=== PATIENT | female | born 1940 | race Caucasian/White ===

== ENCOUNTER 2017-05-22 16:25 | Emergency (ER) | payer OTHER ==
[~2017-05-22] VITALS: Ht 157.5 cm; Wt 81.7 kg
--- NOTE | ~2017-05-22 | EKG ---
[place] [address] [facility] [employer] [place] [address] ELECTROCARDIOGRAM REPORT Name: MIRIAN COCHRAN ELVIN Room #: [facility]P [id number] Admission: 05/22/17 Attend Phys: Discharge: 05/22/17 Date of : 38 Report #: [id number] THIS REPORT FOR: //name// [facility] ED Test Date: 2017-05-22 Test Time: 18:03:46 Pat Name: MIRIAN COCHRAN Department: Room: Gender: F Engine Hostler: RHIANNA : 1940 Requested By: Kip Roy Order Number: [id number] MD: Kimani Silverman Measurements Intervals [place] Rate: 76 P: -35 KS: 174 QRS: -17 QRSD: 83 T: 25 QT: 363 QTc: 409 Interpretive Statements Sinus rhythm Inferior infarct, old Compared to ECG 01/24/2010 11:16:06 Ventricular premature complex(es) no longer present Electronically Signed On 05-23-2017 7:19:06 CDT by Kimani Silverman [email or web address] <ELECTRONICALLY SIGNED> By: Kimani Silverman MD, [facility] 05/23/17 0719 02 02 Kimani Silverman MD, [facility] /EPI
[~2017-05-22 16:25] MED LIST: ADULT LOW DOSE81 MG PO; BISACODYL SUPP10 MG RE; BYSTOLIC 5 MG5 M1 PO; CIPRO500 MG/5 M PO; COUMADIN 4 MG TA4 M1 PO; FIBERCON625 MG PO; FLAGYL 250 MG250 MG PO; LIVALO2 MG PO; MICARDIS HCT 81 EACH PO; MICARDIS40 MG PO; PREVACID 24HR15 MG PO; PRILOSEC40 MG PO; TOPROL XL25 MG PO; TUMS DUAL ACTI1 EACH PO
[2017-05-22 17:09] LABS: ABSOLUTE NEUTROPHILS 3.9 thou/uL (1.4-8.2); BASOPHILS 1.2 % (0.0-2.0); EOSINOPHILS 2.6 % (0.0-3.0); HEMATOCRIT 32.9 % (37.0-47.0); HEMOGLOBIN 10.9 gm/dL (12.0-15.0); LYMPHOCYTES 37.3 % (24.0-44.0); MCH 28.2 pg (26.0-34.0); MCV 85.5 fL (80.0-100.0); MONOCYTES 9.2 % (1.0-8.0); PLATELET COUNT 386 thou/uL (150-400); POLYS 49.7 % (36.0-66.0); RBC 3.85 mil/uL (4.20-5.00); RDW 14.2 % (10.5-14.5); WBC 7.8 thou/uL (4.0-11.0)
[2017-05-22 17:17] LABS: CREATININE 1.7 mg/dL (0.6-1.0); POTASSIUM 5.1 mmol/L (3.5-5.1)
[2017-05-22 17:23] LABS: ALBUMIN 3.6 g/dL (3.4-5.0); TOTAL BILIRUBIN 0.5 mg/dL (<0.1-1.0); TOTAL PROTEIN 7.3 g/dL (6.4-8.2)
[2017-05-22 19:01] LABS: URINE BILIRUBIN NEGATIVE (Negative); URINE BLOOD TRACE (Negative); URINE CLARITY CLEAR; URINE COLOR YELLOW; URINE GLUCOSE-RANDOM* NEGATIVE (Negative); URINE KETONES NEGATIVE (Negative); URINE LEUKOCYTES-REFLEX NEGATIVE (Negative); URINE NITRITE-REFLEX NEGATIVE (Negative); URINE PROTEIN (DIPSTICK) NEGATIVE (Negative); URINE UROBILINOGEN 0.2 E.U./dl (0.2-1.0)
[2017-05-22] MEDS ORDERED: OSELB75 PO (19:43)
[2017-05-22] MEDS ORDERED: ZOFRAN4 MG PO (19:43)
== END 2017-05-22 20:06 | disposition home or self-care (01) ==
LOC: ER 16:25
PROVIDERS: Emergency Medicine
DX: R11.2 Nausea with vomiting, unspecified (principal); I10 Essential (primary) hypertension; E78.00 Pure hypercholesterolemia, unspecified; Z90.49 Acquired absence of other specified parts of digestive tract; Z98.890 Other specified postprocedural states

== ENCOUNTER 2019-03-24 16:33 | Inpatient (IN) | payer OTHER ==
[~2019-03-24] VITALS: Ht 157.5 cm; Wt 85.3 kg
[~2019-03-24 16:33] MED LIST changes: +OSELB75 PO; +ZOFRAN4 MG PO
[2019-03-24] MEDS ORDERED: ROSUVASTATIN CA10 MG PO (17:25)
[2019-03-24] MEDS ORDERED: FLECAINIDE ACET50 M2 PO (17:26)
[2019-03-24 17:30] VITALS: BP 113/58
[2019-03-24 18:49] LABS: HEMATOCRIT 31.9 % (37.0-47.0); HEMOGLOBIN 10.2 gm/dL (12.0-15.0); MCH 28.4 pg (26.0-34.0); MCHC 31.9 g/dL (28.0-37.0); PLATELET COUNT 284 thou/uL (150-400); RBC 3.58 mil/uL (4.20-5.00); RDW 13.4 % (10.5-14.5); WBC 6.3 thou/uL (4.0-11.0)
[2019-03-24 18:58] LABS: % SATURATION 9 % (20-39); IRON 24 ug/dL (50-170); TIBC 274 ug/dL (250-450)
[2019-03-24 18:59] LABS: ALBUMIN 3.5 g/dL (3.4-5.0); CALCIUM 9.6 mg/dL (8.5-10.1); CREATININE 1.9 mg/dL (0.6-1.0); POTASSIUM 4.5 mmol/L (3.5-5.1); TOTAL BILIRUBIN 0.3 mg/dL (<0.1-1.0); TOTAL PROTEIN 7.5 g/dL (6.4-8.2)
--- NOTE | 2019-03-24 19:24 | NUR ---
Pt was direct admission from Dr Walsh office. notified when pt arrived at hospital. Alert and oriented x4. Admission completed. IVF and IV antibiotics infusing. Home meds restarted. Pt states she feels weak. Lung sounds clear but diminished in the bases. Family at bedside. Call light within reach. Fall precautions in place.
[2019-03-24 20:17] LABS: ANISOCYTOSIS 1+
[2019-03-24 21:32] VITALS: BP 96/44
[2019-03-25 00:28] VITALS: BP 109/51
[2019-03-25 03:40] VITALS: BP 157/100
[2019-03-25 05:02] VITALS: BP 124/61
--- NOTE | 2019-03-25 05:37 | NUR ---
ASSUMED CARE AROUND 1914. AXOX3. DTR AT BEDSIDE AT ALL TIME. PT C/O NAUSEA/ACID REFLUX IN THE BEGINNING OF THE SHIFT. ALSO NOTED LOW BP. CALLED AND OBTAINED ORDERS FOR ZOFRAN/TUMS/INC IVF. MN VSS. AROUND 339, PT'S DTR CALLED AND SAID PT WAS NOT FEELING GOOD. THAT PT WAS CRYING ON BED SHE FEELS LIKE SHE'LL PASS OUT AND . ELEVATED BP,PULSE,RESPIRATION NOTED WITH O SAT AND TEMP NORMAL. CALLED IMMEDIATELY AND OBTAINED ORDER FOR ONETIME ATIVAN AND MD TAKE CARE OF THE REST OF IT. AFTER ATIVAN, PT'S BP AND PULSE NORMALIZED AND PT VERBALIZES EASE OF SYMPTOMS. NO S/S ACUTE DISTRESS NOTED OR REPORTED AT THIS TIME. WILL CONT TO MONITOR CLOSELY FOR ANY CHANGES IN CONDITION.
[2019-03-25 08:04] VITALS: BP 142/65
--- NOTE | 2019-03-25 14:30 | NUR ---
PT ASSESSED AT START OF SHIFT. FEELING BETTER AFTER SLEEPING SOME. ATIVAN WORKED WELL. AEROSOL TREATMENT CHANGED TO XOEPENEX AND DID NOT CAUSE ANY TACHYCARDIA OR ANXIETY. IV STEROID ALSO WEANED DOWN. PT COUGH A LITTLE BETTER. EATING SOME. ENC FLUIDS. TRANSFERRED TO [facility] AT THIS TIME.
[2019-03-25 14:37] VITALS: BP 120/62
--- NOTE | 2019-03-25 16:04 | NUR ---
PATIENT TRANSFERRED FROM [address] [place] [address], REPORT FROM VEE/RN. PATIENT ALERT AND ORIENTED X 4. PATIENT UP WITH SBA, BUT STEADY ON HER FEET. PATIENT C/O HEADACHE/DR PIERSON HERE ON THE UNIT, RECEIVED NEW ORDERS FOR TYLENOL AND IBUPROFEN, SHE PREFERRED IBUPROFEN 2 TABLETS GIVEN. PATIENT HAS LEFT UPPER ARM IV WITH D51/2 NS WITH 20 OF KCL AT 125CC/HR. DR PIERSON STATES PATIENT MAY DISCHARGE ON SATURDAY. DAUGHTER AT BEDSIDE, WILL BE SPENDING THE NIGHT. WILL CONTINUE TO MONITOR.
--- NOTE | 2019-03-25 16:18 | NUR ---
Chart reviewed and case discussed with the care team. Global Technical Writer visited with the pt and her dtr at bedside. She is a&ox4 and indicates that she lives independently at home with her spouse. Her pcp is Dr. Walsh. She normally drives and is active in the community. No dme or hh history. She reports feeling weaker than normally but able to walk in the hallway with supervision. She denies any dc needs or concerns at this time. Cm role introduced. Likely home in 1-2 days with outpt f/u. She is being treated for pneumonia. Will remain available should dc needs arise.
[2019-03-25 19:45] VITALS: BP 106/54
--- NOTE | 2019-03-26 05:05 | NUR ---
Assumed pt care at 1900. Pt is A/OX4, pleasant. VSS.Up with SBA. Denied pain on assessment. Continent of B&B. Flu swab obtained and results negative;pt and dtr updated. Pt does have a congested cough,denies producing any sputum. IVF infusing via LAC w/o problems. Resting quietly at this time,dtr at the bedside for the night. Fall precautions in place,will continue to monitor pt.
[2019-03-26 06:06] LABS: ABSOLUTE NEUTROPHILS 8.1 thou/uL (1.4-8.2); HEMATOCRIT 26.3 % (37.0-47.0); HEMOGLOBIN 8.5 gm/dL (12.0-15.0); LYMPHOCYTES 7.2 % (24.0-44.0); MCH 28.6 pg (26.0-34.0); MCHC 32.2 g/dL (28.0-37.0); MCV 88.9 fL (80.0-100.0); MONOCYTES 5.5 % (1.0-8.0); PLATELET COUNT 239 thou/uL (150-400); POLYS 87.3 % (36.0-66.0); RBC 2.96 mil/uL (4.20-5.00); RDW 13.6 % (10.5-14.5); WBC 9.3 thou/uL (4.0-11.0)
[2019-03-26 06:36] LABS: CALCIUM 8.8 mg/dL (8.5-10.1)
[2019-03-26 06:38] LABS: POTASSIUM 6.2 mmol/L (3.5-5.1)
[2019-03-26 08:01] VITALS: BP 128/58
--- NOTE | 2019-03-26 10:38 | NUR ---
ANIBAL reviewed chart and spoke with nursing. Pt is not medically stable for discharge today. ANIBAL spoke with pt's dtr-in-law, Allison, via phone to provide update. urban and regional planner to update [facility] admissions dept. ANIBAL is following to assist as needed with discharge planning.
--- NOTE | 2019-03-26 10:40 | NUR ---
SW reviewed chart and spoke with nursing. Pt was [facility] to [facility] from and is progressing towards goals for discharge. Discharge home is anticipated for tomorrow. ANIBAL is following to assist as needed with discharge planning.
[2019-03-26 18:13] VITALS: BP 124/60
--- NOTE | 2019-03-26 18:14 | NUR ---
PT IS AOX4, VSS, PAIN CONTROLLED WITH ORAL PAIN ANALGESIC. PT HAD A SMALL PANIC ATTACK TODAY AFTER RECEIVING BREATHING TXMT BY RT. NURSE CALLED DR. LOVELL RECEIVED ORDER FOR ATIVAN 0.5 Q 3HR PRN. PT RECEIVED ATIVAN AND CALMED DOWN. PT UP WITH SB ASSIST, TOLERATING DIET WELL. POTASSIUM MEDICATION STOPPED BY DOCTOR THIS MORNING D/T ELEVATED POTASSIUM. FALL PRECAUTION IN PLACE, CALL LIGHT/PERSONAL ITEMS IN REACH. WILL CONTINUE TO MONITOR.
[2019-03-26 19:40] VITALS: BP 115/51
--- NOTE | 2019-03-27 00:50 | NUR ---
PT WAS OBSERVED SITTING UP IN THE CHAIR IN HER ROOM WATCHING TV IN THE COMPANY OF HER FAMILY AT START OF SHIFT.PT DENIED PAIN SO FAR.PER REPORT PT HAD A PANIC ATTACK DURING THE DAY SHIFT,NONE NOTED SO FAR THIS SHIFT.PT HAS BEEN CALM AND COOPERATIVE.PT LOOKING FORWARD TO BE DC LATER IN THE DAY.FALL PRECAUTIONS IN PLACE,CALL LIGHT WITHIN REACH.
[2019-03-27 05:10] LABS: ABSOLUTE NEUTROPHILS 7.9 thou/uL (1.4-8.2); HEMATOCRIT 26.9 % (37.0-47.0); HEMOGLOBIN 8.5 gm/dL (12.0-15.0); LYMPHOCYTES 9.9 % (24.0-44.0); MCH 28.2 pg (26.0-34.0); MCHC 31.7 g/dL (28.0-37.0); MONOCYTES 7.9 % (1.0-8.0); PLATELET COUNT 248 thou/uL (150-400); POLYS 82.2 % (36.0-66.0); RBC 3.02 mil/uL (4.20-5.00); RDW 13.6 % (10.5-14.5); WBC 9.6 thou/uL (4.0-11.0)
[2019-03-27 05:33] LABS: POTASSIUM 5.4 mmol/L (3.5-5.1)
[2019-03-27 06:00] VITALS: BP 123/55
[2019-03-27 07:34] VITALS: BP 122/62
[2019-03-27 17:31] VITALS: BP 117/60
--- NOTE | 2019-03-27 18:46 | H ---
[facility] [place] [address] HISTORY AND PHYSICAL Name: DIMASMAHAMED ELVIN Room #: 406-P ADM IN M.R.#: [id number] Admission: 03/24/19 Attend Phys: Dutch Walsh MD, FAAF Discharge: Date of : 39 Report #: [id number] THIS REPORT FOR: //name// CC: Dutch Walsh DATE OF SERVICE: 03/24/2019 CHIEF COMPLAINT: Pneumonia/pneumonitis; hypoxia. HISTORY OF PRESENT ILLNESS: The patient is a 78-year-old white female well known to me who I evaluated initially in my office on the day of this admission. She had a 1-week evolution of rhonchus cough, congestion, and fatigue. She was noted to be dyspneic in the office and pulse ox on room air, there was 93%. Auscultation revealed evidence of consolidation in both lung bases. She was admitted to the hospital with a presumptive diagnosis of pneumonia and pneumonitis with hypoxia. PAST MEDICAL HISTORY: Hypertension, dyslipidemia, premature ventricular contractions, obesity, diverticulosis, diverticulitis, esophagitis, and iron deficiency anemia. PAST SURGICAL HISTORY: Cholecystectomy, appendectomy, hernia repair with hiatal hernia, polypectomies in 2013, left knee arthroscopy, bilateral cataract surgeries, IVC filter removal 03/02/2015. MEDICATIONS: Telmisartan/hydrochlorothiazide Micardis 80/12.5 one p.o. daily; that is all one medicine, omeprazole 40 mg 1 p.o. daily, and Livalo 2 mg 2 p.o. at bedtime. ALLERGIES: No known drug allergies. SOCIAL HISTORY: Recently , nonsmoker, nondrinker. Lives in [place], [place], and has family in the area. FAMILY HISTORY: Brother had a coronary artery bypass graft surgery in his 60s. Father at age 59 of unknown causes. REVIEW OF SYSTEMS: GENERAL: She has had a fever and shaking chills. No nausea, vomiting or abdominal pain. EYES: No visual changes. ENT: No problems with hearing, swallow, taste, or smell. CARDIOVASCULAR: She has had chest congestion, but no precordial pain, no palpitations. RESPIRATORY: She has had a rhonchus cough and dyspnea. GASTROINTESTINAL: No abdominal pain. [address] [address] HISTORY AND PHYSICAL Name: MAHAMED COCHRAN [facility] Room #: [facility] IN ..#: [id number] Admission: 03/24/19 Attend Phys: Dutch Walsh MD, FAAF Discharge: Date of : 39 Report #: [id number] GENITOURINARY: No problems urinating. MUSCULOSKELETAL: No muscle or joint pain. NEUROLOGIC: No paresis, paralysis, or paresthesias. PSYCHIATRIC: No feelings of depression. DERMATOLOGIC: No disturbing lesions or rash. Remainder of systems review is negative. OBJECTIVE: VITAL SIGNS: Temperature is 98.6, pulse 98, respirations 20, blood pressure 148/88, and pulse ox on room air in hospital is 98%. In office was 93%. She is a pleasant white female, appears fatigued, and has rhonchus cough. HEENT: Pupils equal, round, reactive to light and accommodation. Extraocular muscles intact. Pharynx unremarkable. NECK: Supple. COR: S1, S2. CHEST: Rhonchi bilateral bases with some wheezing. ABDOMEN: Soft, nontender. EXTREMITIES: Nonedematous. NEUROLOGIC: Intact without focal deficits. IMAGING: Chest x-ray showed a scant bibasilar atelectasis versus infiltrate and chronic fibrotic changes. LABORATORY DATA: White count is 10.8, hemoglobin 10.2, iron 26, BUN 28, and creatinine 1.9. ASSESSMENT: 1. Pneumonia/pneumonitis. 2. Hypoxia. 3. Hypertension. 4. Iron deficiency anemia. 5. Volume depletion. PLAN: Admit to hospital, Rocephin IV. Blood and sputum cultures obtained, IV fluid, rehydration. ____. Follow labs longitudinally and then also pulmonary toilet with albuterol aerosol treatments and then another one is put please, IV steroids. <ELECTRONICALLY SIGNED> By: Dutch Walsh MD, FAAFP, FACEP 03/27/19 1846 0942 1001 Dutch Walsh MD, FAAFP, FACEP /nt
--- NOTE | 2019-03-27 20:25 | NUR ---
ASSUMED CARE OF PATIENT AT 0715, PATIENT ALERT AND ORIENTED X 4. PATIENT DENIES PAIN THIS SHIFT. PATIENT LUNGS SOUND BETTER THIS AM, COUGH IMPROVED. PATIENT HAS REFUSED BREATHING TREATMENTS THIS SHIFT DUE TO FEAR OF PANIC ATTACKS. PATIENT HAS LEFT AC IV IN PLACE, RECEIVED 1 IV ANTIBIOTIC THIS SHIFT. PATIENT C/O PANIC ATTACK THIS AFTERNOON, LORAZEPAM 0.5MG IV GIVEN X 2 THIS SHIFT. PATIENT DID CALM DOWN, SHE SHE FEELS NOT WELL. DR LOVELL HERE THIS EVENING, ORDER RECEIVED TO TRANSFER TO CCU. NEW CONSULT FOR CARDIO/DR MONTAÑO LIP OF SHANK CUTTER NEVA, CONSULT CALLED SPOKE TO HIRAM, NEW CONSULT FOR PULM./DR DIANE LIP OF SHANK CUTTER, SPOKE TO JASON, NEW CONSULT FOR BRONCHOSPASMS. DIVING BOARD ASSEMBLER NOTIFIED AND PATIENT WILL TRANSFER TO [facility]. NIGHTSHIFT/JAROD/MASON WILL TRANSFER THE PATIENT. DAUGHTER AT BEDSIDE. PATIENT C/O HEADACHE, TRAMADOL 50 MG 1 TABLET GIVEN, WITH NO RELIEF. WILL CONTINUE TO MONITOR.
--- NOTE | 2019-03-27 20:45 | NUR ---
PATIENT ALERT AND ORIENTED X4. DAUGHTER AT BEDSIDE. DENIES PAIN. SWALLOWS W/O DIFFICULTY. NO SCD'S IN PLACE PATIENT AMBULATES WELL WITH SBA. NO SKIN BREAKDOWN. PATIENT WILL BE TRANSFERRING TO ROOM [address] LOVELL. CONSULTS TO DR. FRIED AND DR. SNYDER CALLED IN WITH NO RETURN CALL AT TIME OF THIS NOTE. REPORT GIVEN TO TARIK CUEVAS FROM THIS NURSE. NIGHT MEDICATION GIVEN UP UNTIL 2200. PATIENT RESTING QUIETLY. SOME EDEMA NOTED TO BILATERAL ANKLES +1. WILL MONITOR.
--- NOTE | 2019-03-27 21:24 | NUR ---
PATIENT TRANSFERRED AT 2110 PER BED WITH THIS NURSE AND HELP DESK ADMINISTRATOR (SUJATA). PATIENT WALKED FROM BED IN HALLWAY TO ROOM 213 W/O SOA. NURSE MASON MONTANEZ INFORMED OF ARRIVAL BY THIS NURSE.
[2019-03-27 21:40] VITALS: BP 146/74
[2019-03-28 04:21] VITALS: BP 124/80
--- NOTE | 2019-03-28 06:55 | NUR ---
RECEIVED REPORT FROM JAROD OH RN.PATIENT ARRIVED AROUND 2116 TO ROOM 213 ACCOMPANIED BY THE NURSE,RN CASE MGR AND DAUGHTER.TACHYCARDIC INITIALLY THEN STACIE LATER HOURS OF THE SHIFT.COMPLAIN OF HEADACHE,WENT TO SLEEP AND HEADACHE IS GONE THIS MORNING.UP WALKING IN THE HALLWAYS WITH DAUGHTER.POC CONTINUED.
[2019-03-28 07:30] VITALS: BP 114/59
[2019-03-28 08:20] LABS: BASOPHILS 0.2 % (0.0-2.0); HEMATOCRIT 30.6 % (37.0-47.0); HEMOGLOBIN 9.7 gm/dL (12.0-15.0); LYMPHOCYTES 10.2 % (24.0-44.0); MCHC 31.7 g/dL (28.0-37.0); MCV 88.2 fL (80.0-100.0); MONOCYTES 4.1 % (1.0-8.0); PLATELET COUNT 277 thou/uL (150-400); POLYS 85.5 % (36.0-66.0); RBC 3.47 mil/uL (4.20-5.00); RDW 13.4 % (10.5-14.5); WBC 8.2 thou/uL (4.0-11.0)
[2019-03-28 08:37] LABS: ALBUMIN 3.2 g/dL (3.4-5.0); TOTAL BILIRUBIN 0.2 mg/dL (<0.1-1.0); TOTAL PROTEIN 6.8 g/dL (6.4-8.2)
--- NOTE | 2019-03-28 10:50 | EKG ---
[place] [address] [facility] [place] [address] ELECTROCARDIOGRAM REPORT Name: MAHAMED COCHRAN Room #: 213-P ADM IN M.R.#: [id number] Admission: 03/24/19 Attend Phys: Dutch Walsh MD, FAAF Discharge: Date of : 39 Report #: [id number] THIS REPORT FOR: //name// [facility] Test Date: 2019-03-27 Test Time: 19:04:14 Pat Name: MAHAMED COCHRAN Department: Room: 213 Gender: F Range Mounter: Cristobal GAITAN : 1940 Requested By: Dutch Walsh Order Number: [id number] MD: Luiz Contreras Measurements Intervals [place] Rate: 61 P: -21 RI: 171 QRS: -16 QRSD: 84 T: 36 QT: 402 QTc: 405 Interpretive Statements Sinus rhythm Frequent APCs Inferior infarct, old Compared to ECG 10/20/2017 02:55:34 Atrial premature complex(es) now present Myocardial infarct finding still present Electronically Signed On 03-28-2019 10:49:[address] by Luiz Contreras [email or web address] <ELECTRONICALLY SIGNED> By: Luiz Contreras MD 03/28/19 1049 190 03 Luiz Contreras MD /SLIME
--- NOTE | 2019-03-28 11:37 | NUR ---
ASSUMED CARE OF PT APPROX 0715, REC REPORT 0748. PT WAS UP IN WAITING AREA W/DAUGHTER, A&0X4, AMB STEADY AND SLOW. SEE SEPARATE INTERVENTIONS FOR ASSESSMENTS. NEED FOR SPUTUM AND STOOL YET SHE ALSO ASKED PHYSICIAN FOR SOMETHING TO INHIBIT THE LOOSE STOOLS. NOT MALODOROUS. PLACED TWO HATS IN BATHROOM FOR ACCURATE I&0 AND FRESH STOOL ALONG WITH LAB SPECIMEN CUPS. LATER IN THE A.M. PT'S IV NO LONGER WAS PATENT. PLACED CALL TO IV TEAM SHE STATES THIS IS THE WAY SHE RECEIVES HER IVS D/T VEINS. ENCOURAGED BOTH PT AND DAUGHTER TO USE CALL LIGHT FOR ANY NEEDS
[2019-03-28 17:30] VITALS: BP 135/93
[2019-03-28 19:57] VITALS: BP 125/61
[2019-03-29 04:43] VITALS: BP 133/63
--- NOTE | 2019-03-29 05:32 | NUR ---
ASSESSMENT DOCUMENTED.PT BEEN RESTING IN NO ACUTE DISTRESS.VSS.ON RA W/O RESP DISTRESS.SINUS STACIE ON MONITOR.PT HAD EPISODE OF NAUSEA FOLLOWED BY VOMITING,CONTROLLED WITH IV ZOFRAN,LORAZEPAM GIVEN PER PT AND FAMILY REQUEST.DENIES ANY NEEDS AT THIS TIME.POSSIBLE DISCHARGE TODAY AT HOME W/HH.
--- NOTE | 2019-03-29 08:20 | NUR ---
ASSUMED CARE OF PT APPROX 0715, REPORTS OF N/V AND SHAKING/TREMBLING/ANXIETY SYMPTOMS AFTER RN NEEDED TO WORK WITH EXISTING IV. PT STATES SHE'D BEEN FEELING NAUSEAS W/HEADACHE PRIOR TO SITUATION AND STILL FEELS NAUSEAS. GOT SPRITE AND CRACKERS PRIOR TO BREAKFAST AND WILL GIVE ANTIEMETIC. A&0X4, DAUGHTER AT BEDSIDE, SUPPORTIVE AND DOES A LOT FOR HER MOTHER TO POINT MOTHER NOT DOING SOME THINGS HERSELF, FROM APPEARANCE. AMB STEADY W/GAIT BELT AND SBA. NO BMS OVERNIGHT, STOOL COLLECTED LAST NIGHT AT END OF MY SHIFT. ENCOURAGED BOTH TO USE CALL LIGHT FOR ANY NEEDS. BUN/CREAT ELEVATED. SEE SEPARATE INTERVENTIONS FOR ASSESSMENTS
[2019-03-29 09:56] LABS: HEMOGLOBIN 9.6 gm/dL (12.0-15.0); MCH 28.4 pg (26.0-34.0); MCHC 32.2 g/dL (28.0-37.0); MCV 88.3 fL (80.0-100.0); RBC 3.39 mil/uL (4.20-5.00); RDW 13.3 % (10.5-14.5)
[2019-03-29 10:12] VITALS: BP 130/69
[2019-03-29 10:18] LABS: CALCIUM 8.5 mg/dL (8.5-10.1); POTASSIUM 4.2 mmol/L (3.5-5.1); TOTAL BILIRUBIN 0.2 mg/dL (<0.1-1.0); TOTAL PROTEIN 6.1 g/dL (6.4-8.2)
--- NOTE | 2019-03-29 11:14 | HC ---
[facility] [place] [address] CONSULTATION Name: DIMASSUGEYRosemarie [facility] Room #: 213-P ADM IN M.R.#: [id number] Admission: 03/24/19 Attend Phys: Dutch Walsh [facility] Dis[facility]: Date of : 39 Report #: [id number] THIS REPORT FOR: //name// CC: Dutch Walsh CARDIOLOGY CONSULTATION INDICATION: Palpitations. HISTORY OF PRESENT ILLNESS: This is a pleasant 78-year-old female with a history of PAF, hypertension, GI bleed, PVCs, iron deficiency anemia, who was admitted several days ago with shortness of breath, cough and fatigue. She was admitted to the hospital with community-acquired pneumonia and has been managed with antibiotics on a medical floor. She reports having 2 episodes of palpitations. The initial episode occurred after a breathing treatment. She developed lightheadedness and had tremors. Her heart was racing. These symptoms resolved on its own. She had a similar episode yesterday, but did not receive a breathing treatment prior to it. She was transferred to telemetry. On telemetry, the rhythm remains sinus. She did have one episode of nonsustained atrial tachycardia of 15 beats. She denies any episodes of chest pain or dyspnea. Overall, her breathing has improved while she has been hospitalized. PAST MEDICAL HISTORY: Remote history of PAF, had been on anticoagulation therapy, but developed a GI bleed. Since then, she is not on anticoagulation therapy and has been maintained in sinus rhythm with flecainide. History of hypertension, hypercholesterolemia, PVCs, iron deficiency anemia and esophageal stricture. ALLERGIES: None. MEDICATIONS: At home include flecainide daily, omeprazole, Micardis HCT and Lovastatin. SOCIAL HISTORY: Negative for tobacco use. FAMILY HISTORY: Negative for premature CAD. REVIEW OF SYSTEMS: A full 10-point review of systems performed. Only the pertinent positives and negatives are described in the HPI. PHYSICAL EXAMINATION: VITAL SIGNS: Blood pressure is 120/60, heart rate is 70 beats per minute. GENERAL APPEARANCE: An elderly appearing female in no acute distress. HEENT: Normocephalic, atraumatic. Oral mucosa moist. NECK: Supple. LUNGS: Clear to auscultation. [facility] [address] [place] [address] CONSULTATION Name: MAHAMED COCHRAN [facility] Room #: 213-P [facility] IN ..#: [id number] Admission: 03/24/19 Attend Phys: Dutch Walsh MD, FAAF Discharge: Date of : 39 Report #: [id number] CARDIAC: Regular rate and rhythm, S1, S2 positive. ABDOMEN: Soft, nontender. EXTREMITIES: No cyanosis, trace edema. IMAGING: ECG reveals sinus rhythm with APCs. LABORATORY VALUES: White count is 8.2, hemoglobin is 9.7, BUN is 46, and creatinine is 2.0. ASSESSMENT AND PLAN: 1. Palpitations, no evidence of atrial fibrillation at this time. Having episodes of nonsustained atrial tachycardia. We will add a low dose beta lalit. 2. Paroxysmal atrial fibrillation, no indication of recurrence. Continue with flecainide. No anticoagulation in view of history of gastrointestinal bleed. 3. Pneumonia, appears to be stable. Continue with antibiotics. 4. Hypertension, the blood pressure is stable on the current regimen. <ELECTRONICALLY SIGNED> By: Luiz Contreras MD 03/29/19 1114 1125 1223 Luiz Contreras MD /nt
--- NOTE | 2019-03-29 11:24 | NUR ---
CARDIOLOGY CALL: CALLED CARDIOLOGY TO ALERT THEM TO CHANGE IN HEART RATE. PT IS RESTING YET HER NORM HAS BEEN >50S NOW IN 40S. ASYMPTOMATIC OTHER THAN ONGOING INTERMITTENT NAUSEA. WILL CALL LABS IN TO DR. AGUILLON ONCE DONE/VIEWED
[2019-03-29 17:00] VITALS: BP 119/64
[2019-03-29 19:54] VITALS: BP 141/69
--- NOTE | 2019-03-30 04:53 | NUR ---
PT ALERT AND ORIENTED. FAMILY AT BEDSIDE. VSS. PT DENIES PAIN, SOB, OF CHEST PAIN. A X 1 TO THE BATHROOM. 0.45NS AT 75 ML/HR. PT SINUS STACIE MOST OF THE NIGHT. DENIES LIGHTHEADEDNESS. NPO SINCE 0000 FOR PENDING GI CONSULT. NO FURTHER C/O REPORTED. WILL FOLLOW POC
[2019-03-30 06:21] LABS: CALCIUM 8.5 mg/dL (8.5-10.1); CREATININE 1.7 mg/dL (0.6-1.0); POTASSIUM 4.9 mmol/L (3.5-5.1)
[2019-03-30 08:00] VITALS: BP 145/78
--- NOTE | 2019-03-30 16:57 | NUR ---
ASSUMMED PT CARE AT APPROXIMATELY 0700. PT A&O X4. ASSESSMENT CHARTED. FALL PRECAUTIONS IN PLACE. PT DENIES HAVING CHEST PAIN. PT DENIES HAVING SOB. PT DENIES HAVING ACUTE PAIN. GI CONSULTED. PT HAVING EGD TOMORROW. PT AND PT FAMILY EDUCATED ABOUT POC. PT AND PT'S FAMILY STATED UNDERSTANDING AND DENIED HAVING FURTHER QUESTIONS. VITAL SIGNS STABLE. BLOOD SUGARS STABLE. PT UP TO CHAIR THROUGHOUT DAY. PT AMBULATES STEADY. PT COMFORTABLE IN BED. PT DENIED HAVING FURTHER CONCERNS. PT DENIED HAVING NAUSEA.
[2019-03-30 20:00] VITALS: BP 118/63
--- NOTE | 2019-03-31 03:44 | NUR ---
PT SLEPT MOST OF THE NIGHT , FAMILY AT BEDSIDE. VSS, BUT REMAINS BRADYCARDIC ON THE MONITOR. PT DENIES ANY Sx OF NAUSEA DIZZINESS, CHEST PAIN OR SOB. TOLERATES WELL WILL X 1 ASSIST TO BATHROOM. EGD FOR TODAY. PT WILL BE STRICT NPO AFTER 6 AM. NO FURTHER CONCERNS AT THIS POINT. WILL CONTINUE TO MONITOR.
[2019-03-31 04:44] VITALS: BP 131/52
[2019-03-31 07:30] VITALS: BP 139/66
--- NOTE | 2019-03-31 09:59 | NUR ---
Assess for length of stay. Admit with pneumonitis. No significant wt changes over past year with UBW 180-190 lb. Hx esophageal stricture and having symptoms dysphagia to solids and nausea. Intake poor this admission less than 75% x week. NPO for EGD today. Will follow up 04/01 for further nutrition assessment and nutrition interventions.
[2019-03-31 11:30] VITALS: BP 131/81; BP 158/82
[2019-03-31 13:25] VITALS: BP 159/87
[2019-03-31 15:30] VITALS: BP 129/67
--- NOTE | 2019-03-31 16:37 | NUR ---
spoke with Rn cont plan home independently. patient steady gait anticipate no dc needs.
--- NOTE | 2019-03-31 18:10 | NUR ---
ASSUMMED PT CARE AT APPROXIMATELY 0700. PT A&O X4. ASSESSMENT CHARTED. FALL PRECAUTIONS IN PLACE. PT DENIES HAVING CHEST PAIN. PT DENIES HAVING SOB. PT DENIES HAVING ACUTE PAIN. PT DISHCARGING HOME C SELF CARE. IV DC. TELE DC. PT AND PT'S FAMILY RECIEVED DISHCARGE EDUCATION. PT AND PT'S FAMILY STATED UNDERSTANDING AND DENIED HAVING FURTHER QUESTIONS. VITAL SIGNS STABLE. BLOOD SUGARS STABLE. PT COMFORTABLE. PT DENIES HAVING FURTHER CONCERNS. PT LEAVING UNIT C MEDICAL TRANSPORT.
[2019-03-31 18:42] VITALS: BP 129/67
[2019-04-03 08:09] LABS: ADENOVIRUS Negative (Negative); INFLUENZA A Negative (Negative); INFLUENZA B Negative (Negative); METAPNEUMOVIRUS Negative (Negative); PARAINFLUENZA 1 Negative (Negative); PARAINFLUENZA 2 Negative (Negative); PARAINFLUENZA 3 Negative (Negative); RHINOVIRUS Negative (Negative); RSV A Negative (Negative); RSV B Negative (Negative)
--- NOTE | 2019-04-03 11:38 | P ---
[facility] [place] [address] PROCEDURE REPORT Name: MAHAMED COCHRAN ELVIN Room #: 213-P [facility] IN M.R.#: [id number] Admission: 03/24/19 Attend Phys: Dutch Walsh MD, [facility] Discharge: 03/31/19 Date of : 39 Report #: [id number] THIS REPORT FOR: //name// CC: Kimani Silverman MD [facility] Dutch Walsh MD DATE OF SERVICE: 03/31/2019 PROCEDURE PERFORMED: Upper endoscopy with esophageal dilation. HISTORY OF PRESENT ILLNESS: The patient is a 78-year-old female who was admitted with shortness of breath last week. She has improved, treated for possible pneumonia. Chest x-ray now is normal. She denies any shortness of breath. Reason for GI consultation yesterday was dysphagia. She underwent an upper endoscopy by myself on 10/22/2017, which showed severe grade D erosive esophagitis and a tight stricture, status post balloon dilation at that time. This was helpful for her dysphagia. Since then, she has been on omeprazole daily. She again is complaining of dysphagia. Plan is for repeat upper endoscopy with dilation today. DESCRIPTION OF PROCEDURE: The risks and benefits of the procedure were explained to the patient, those risks including but not limited to bleeding, perforation and the risk of sedation. She understood these risks and gave informed consent. Sedation was given using propofol per anesthesia. Next, using a standard Olympus upper endoscope, the scope was placed in the patient's mouth and advanced under direct vision through the esophagus, stomach and into the second portion of the duodenum. The larynx was normal in appearance. The upper and mid esophagus was normal. In the distal esophagus, once again, there was a stricture noted at the GE junction. There was no evidence of esophagitis or Meehan's esophagus. The scope did pass through this area without resistance. Upon entering the stomach, a small hiatal hernia was noted. Overall, the gastric mucosa was normal. The pylorus was normal and patent. The duodenal bulb, first and second portion were all normal. The scope was then brought back up into the patient's stomach and a Savary guidewire was inserted through the scope, leaving the wire in place as the scope was then withdrawn. Next, a 48-[place] Savary dilation was then performed without difficulty. The dilator was removed. The scope was reintroduced into the patient's esophagus. There was a small mucosal tear after dilation with a small amount of bleeding. This stopped spontaneously. The wire was removed. No further dilations were performed. At this point, the scope was then withdrawn and the procedure terminated. The patient tolerated the procedure well. IMPRESSION: 1. Distal esophageal stricture, status post dilation as described above. 2. Small hiatal hernia. [facility] [address] [place] [address] PROCEDURE REPORT Name: MAHAMED COCHRAN [facility] Room #: 213-P DIS IN M.R.#: [id number] Admission: 03/24/19 Attend Phys: Dutch Walsh MD, FAAF Discharge: 03/31/19 Date of : 39 Report #: [id number] 3. Otherwise, normal upper endoscopy. RECOMMENDATIONS: 1. Observe patient post-procedure. 2. Continue daily PPI therapy. Thank you for allowing me to participate in her care. <ELECTRONICALLY SIGNED> By: Eduardo Pineda MD 04/03/19 1138 1252 2203 Eduardo Pineda MD /nt
== END 2019-03-31 19:51 | disposition home or self-care (01) | DRG 391 ==
LOC: 4N 16:33 → 2N 16:33 → 4S 16:33 → 4N 03-25 14:19 → 2N 03-27 21:35
PROVIDERS: Internal Medicine; ADMIT Family Medicine
PROC: 0D748ZZ Dilation of Esophagogastric Junction, Via Natural or Artificial Opening Endoscopic (ICD-10-PCS; principal; 2019-03-31)
DX: K22.2 Esophageal obstruction (principal); J18.9 Pneumonia, unspecified organism; I47.1 Supraventricular tachycardia; R09.02 Hypoxemia; D50.9 Iron deficiency anemia, unspecified; I48.0 Paroxysmal atrial fibrillation; E78.00 Pure hypercholesterolemia, unspecified; E78.5 Hyperlipidemia, unspecified; K44.9 Diaphragmatic hernia without obstruction or gangrene; J40 Bronchitis, not specified as acute or chronic; E66.9 Obesity, unspecified; K57.90 Diverticulosis of intestine, part unspecified, without perforation or abscess without bleeding; N18.3 Chronic kidney disease, stage 3 (moderate); I12.9 Hypertensive chronic kidney disease with stage 1 through stage 4 chronic kidney disease, or unspecified chronic kidney disease; T38.0X5A Adverse effect of glucocorticoids and synthetic analogues, initial encounter; K21.9 Gastro-esophageal reflux disease without esophagitis; F41.9 Anxiety disorder, unspecified; E86.9 Volume depletion, unspecified; Z68.34 Body mass index [BMI] 34.0-34.9, adult; Z90.49 Acquired absence of other specified parts of digestive tract; Z79.899 Other long term (current) drug therapy; Z79.51 Long term (current) use of inhaled steroids; Z98.42 Cataract extraction status, left eye; Z98.41 Cataract extraction status, right eye; Y92.89 Other specified places as the place of occurrence of the external cause; Z82.49 Family history of ischemic heart disease and other diseases of the circulatory system; Z79.4 Long term (current) use of insulin; Z86.010 Personal history of colon polyps; R13.10 Dysphagia, unspecified
CPT/HCPCS: 10081; 10091; 10100; 10102; 10194; 62110; 62900; 70005

== ENCOUNTER → 2019-08-21 | Outpatient (CLI) | payer OTHER ==
[~2019-08-21] MED LIST changes: +FLECAINIDE ACET50 M2 PO; +ROSUVASTATIN CA10 MG PO
== END ==
LOC: SJCVC 13:25
PROVIDERS: ATTEND Internal Medicine
DX: R00.1 Bradycardia, unspecified (principal); I48.0 Paroxysmal atrial fibrillation; D50.0 Iron deficiency anemia secondary to blood loss (chronic); E78.5 Hyperlipidemia, unspecified; I10 Essential (primary) hypertension; E78.00 Pure hypercholesterolemia, unspecified; Z79.899 Other long term (current) drug therapy; Z82.49 Family history of ischemic heart disease and other diseases of the circulatory system

== ENCOUNTER → 2020-02-23 | Outpatient (CLI) | payer OTHER | LOC: SJCVCIMAG 10:09 | PROVIDERS: ATTEND Internal Medicine | DX: I08.3 Combined rheumatic disorders of mitral, aortic and tricuspid valves (principal); R94.31 Abnormal electrocardiogram [ECG] [EKG]; I48.0 Paroxysmal atrial fibrillation; R00.1 Bradycardia, unspecified; I11.9 Hypertensive heart disease without heart failure; E78.5 Hyperlipidemia, unspecified; D50.0 Iron deficiency anemia secondary to blood loss (chronic); Z79.899 Other long term (current) drug therapy ==

== ENCOUNTER → 2020-03-03 | Outpatient (CLI) | payer OTHER ==
[2020-03-03 11:20] VITALS: BP 119/48
[2020-03-03 13:20] VITALS: BP 123/51
[2020-03-03 13:44] VITALS: BP 129/49
--- NOTE | 2020-03-03 14:34 | NUR ---
HERE FOR FIRST OF TWO INJECTAFER INFUSIONS. ACCOMPANIED BY DAUGHTER RIANA. PATIENT IS DIFFICULT IV START. IV THERAPY STARTED IV IN [facility] WITH USE OF ULTRASOUND. REVIEWED MEDICATION. DAUGHTER AND PATIENT REFUSED LITERATURE. TOLERATED INFUSION WITHOUT DIFFICULTY. REMAINED AFTER INFUSION FOR 30 MINUTES. BP STABLE. DC IN WHEELCHAIR WITH DAUGHTER. TO RETURN IN ONE WEEK FOR NEXT INFUSION.
== END ==
LOC: OPONC 11:05
PROVIDERS: ATTEND Internal Medicine
DX: D50.9 Iron deficiency anemia, unspecified (principal); I48.0 Paroxysmal atrial fibrillation
CPT/HCPCS: 95000

== ENCOUNTER → 2020-03-10 | Outpatient (CLI) | payer OTHER ==
[2020-03-10 11:25] VITALS: BP 120/60
[2020-03-10 12:00] VITALS: BP 129/69
[2020-03-10 12:25] VITALS: BP 115/57
--- NOTE | 2020-03-10 12:30 | NUR ---
HERE FOR 2ND AND FINAL INJECTAFER INFUSION. REPORTS DOING WELL, FEELING WELL. STATES TOLERATED LAST WEEK'S INJECTAFER INFUSION WITHOUT ANY UNTOWARD SIDE EFFECTS. TOLERATED TODAY'S INFUSION WITHOUT INCIDENT, VSS. WATCHED FOR 30 MIN POST. ENCOURAGED PT TO ASK HER PHYSICIAN WHEN SHE SHOULD HAVE REPEAT LABS. DISMISSED IN STABLE CONDITION.
== END ==
LOC: OPONC 11:15
PROVIDERS: ATTEND Internal Medicine
DX: D50.9 Iron deficiency anemia, unspecified (principal); I48.0 Paroxysmal atrial fibrillation
CPT/HCPCS: 95000

== ENCOUNTER → 2020-08-25 | Outpatient (CLI) | payer OTHER | LOC: SJCVC 12:57 | PROVIDERS: ATTEND Internal Medicine | DX: I44.0 Atrioventricular block, first degree (principal); I48.0 Paroxysmal atrial fibrillation; R00.1 Bradycardia, unspecified; I10 Essential (primary) hypertension; E78.5 Hyperlipidemia, unspecified; D50.0 Iron deficiency anemia secondary to blood loss (chronic); E78.00 Pure hypercholesterolemia, unspecified; Z90.49 Acquired absence of other specified parts of digestive tract; Z96.652 Presence of left artificial knee joint; Z79.899 Other long term (current) drug therapy; Z86.718 Personal history of other venous thrombosis and embolism; Z82.49 Family history of ischemic heart disease and other diseases of the circulatory system ==

== ENCOUNTER → 2020-10-19 | Outpatient (CLI) | payer OTHER | LOC: RAD 12:11 | PROVIDERS: ATTEND Family Medicine | DX: R09.89 Other specified symptoms and signs involving the circulatory and respiratory systems (principal); R05 Cough; R06.2 Wheezing ==

== ENCOUNTER → 2021-02-22 | Outpatient (CLI) | payer OTHER | LOC: SJCVC 12:41 | PROVIDERS: ATTEND Internal Medicine | DX: R94.31 Abnormal electrocardiogram [ECG] [EKG] (principal); I48.0 Paroxysmal atrial fibrillation; R00.1 Bradycardia, unspecified; I10 Essential (primary) hypertension; E78.5 Hyperlipidemia, unspecified; D50.0 Iron deficiency anemia secondary to blood loss (chronic); E78.00 Pure hypercholesterolemia, unspecified; Z86.718 Personal history of other venous thrombosis and embolism; Z79.899 Other long term (current) drug therapy; Z82.49 Family history of ischemic heart disease and other diseases of the circulatory system ==

== ENCOUNTER 2021-02-27 16:17 | Emergency (ER) | payer OTHER ==
[~2021-02-27] VITALS: Ht 157.5 cm; Wt 83.9 kg
[2021-02-27 20:26] LABS: ABSOLUTE NEUTROPHILS 6.6 thou/uL (1.4-8.2); BASOPHILS 1.1 % (0.0-2.0); HEMATOCRIT 27.6 % (37.0-47.0); HEMOGLOBIN 8.9 gm/dL (12.0-15.0); LYMPHOCYTES 26.5 % (24.0-44.0); MCH 29.4 pg (26.0-34.0); MCHC 32.4 g/dL (28.0-37.0); MCV 90.7 fL (80.0-100.0); MONOCYTES 9.8 % (1.0-8.0); PLATELET COUNT 304 thou/uL (150-400); POLYS 59.6 % (36.0-66.0); RBC 3.05 mil/uL (4.20-5.00); RDW 12.6 % (10.5-14.5)
[2021-02-27 20:30] LABS: CALCIUM 9.1 mg/dL (8.5-10.1); POTASSIUM 4.5 mmol/L (3.5-5.1)
[2021-02-27 20:44] LABS: ALBUMIN 3.1 g/dL (3.4-5.0); TOTAL BILIRUBIN 0.4 mg/dL (0.2-1.0); TOTAL PROTEIN 6.3 g/dL (6.4-8.2)
[2021-02-27] MEDS ORDERED: AMBIEN 5 MG TABL5 M1 PO (22:32)
[2021-02-27] MEDS ORDERED: TESSALON PERLE100 MG PO (23:38)
[2021-02-27 23:54] VITALS: BP 111/58
--- NOTE | 2021-02-28 14:00 | EKG ---
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1940 Requested By: Bisi Jacob Order Number: [id number] MD: Tomy Stanford Measurements Intervals [place] Rate: 81 P: DC: QRS: 9 QRSD: 83 T: 60 QT: 335 QTc: 389 Interpretive Statements NSR Low voltage, precordial leads Compared to ECG 03/27/2019 19:04:14 Low QRS voltage now present Myocardial infarct finding no longer present Electronically Signed On 02-28-2021 14:00:25 [employer] by Tomy Stanford [email or web address] <ELECTRONICALLY SIGNED> By: Tomy Stanford MD, [facility] 02/28/21 1400 21 21 Tomy Stanford MD, FACC /EPI
== END 2021-02-27 23:55 | disposition home or self-care (01) ==
LOC: ER 16:17
PROVIDERS: Nurse Practitioner
DX: R05.9 Cough, unspecified (principal); Z20.822 Contact with and (suspected) exposure to COVID-19; E87.1 Hypo-osmolality and hyponatremia; I48.91 Unspecified atrial fibrillation; E78.00 Pure hypercholesterolemia, unspecified; I10 Essential (primary) hypertension; Z90.49 Acquired absence of other specified parts of digestive tract; Z90.89 Acquired absence of other organs; Z98.890 Other specified postprocedural states; Z79.899 Other long term (current) drug therapy

== ENCOUNTER → 2021-02-28 | Outpatient (CLI) | payer OTHER ==
[~2021-02-28] MED LIST changes: +AMBIEN 5 MG TABL5 M1 PO; +TESSALON PERLE100 MG PO
== END ==
LOC: SJCVCIMAG 13:04
PROVIDERS: ATTEND Internal Medicine
DX: I08.0 Rheumatic disorders of both mitral and aortic valves (principal); R05.9 Cough, unspecified

== ENCOUNTER → 2021-03-06 | Outpatient (CLI) | payer OTHER | END | disposition home or self-care (01) | LOC: NUC 08:11 → CAT 08:11 | PROVIDERS: ATTEND Internal Medicine | DX: R06.02 Shortness of breath (principal); Z86.718 Personal history of other venous thrombosis and embolism ==